=== PATIENT | female | born 1975 | race Caucasian/White ===

== ENCOUNTER 2017-12-30 18:15 | Emergency (ER) | payer OTHER ==
[~2017-12-30] VITALS: Ht 167.6 cm; Wt 97.5 kg
[~2017-12-30 18:15] MED LIST: ACET-8386 PO; CYCL-405 PO; GABA100C PO; TRAM50TA1 PO
[2017-12-30 18:21] VITALS: BP 135/92
--- NOTE | 2017-12-30 18:30 | NUR ---
PT AMBULATED TO BED 9. UA CUP PROVIDED. PT UNABLE TO VOID AT THIS TIME.
--- NOTE | 2017-12-30 19:15 | NUR ---
report recv'd from Alisia MOONEY
--- NOTE | 2017-12-30 19:20 | NUR ---
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 PT DENIES N/V/D; SKIN IS INTACT, PINK/WARM/DRY; AAOX4, PERRL, WITH EVEN AND STEADY GAIT; LUNGS CLEAR BL, BREATHING UNLABORED; HR EVEN AND REGULAR, BL PERIPHERAL PULSES PRESENT; BS ACTIVE X4, NO TENDERNESS TO PALPATION, NO HEPATOSPLENOMEGALLY PALPATED, RESONANT TO PERCUSSION; PT DENIES ANY FEVER, CP, SOB, OR COUGH AT THIS TIME; PT STATES 9/10 Umbilical PAIN AT THIS TIME; VSS; PATIENT POSITIONED FOR COMFORT; HOB ELEVATED; BEDRAILS UP X2; BED DOWN.
--- NOTE | 2017-12-30 19:20 | NUR ---
Patient states "my ankle also hurts and is swollen." On assessment left ankle CMS intact, equal strength in bilat lower extremities. Patient states this is a chronic pain.
--- NOTE | 2017-12-30 20:00 | NUR ---
PT ON STRETCHER IN NAD, NO IDENTIFIED REQUESTS AT THIS TIME.
[2017-12-30] MEDS ORDERED: KETOROLAC 30 MG/ML VIAL IM ONE (20:25)
[2017-12-30 21:10] VITALS: BP 135/78
== END 2017-12-30 21:10 | disposition home or self-care (01) ==
LOC: MED 18:15
DX: S93.402A Sprain of unspecified ligament of left ankle, initial encounter (principal); K42.9 Umbilical hernia without obstruction or gangrene; X50.0XXA Overexertion from strenuous movement or load, initial encounter; Y93.89 Activity, other specified; Y99.8 Other external cause status; Y92.89 Other specified places as the place of occurrence of the external cause
CPT/HCPCS: 73610; 81002; 81025; 96372; 99284; J1885